=== PATIENT | male | born 1955 | race Caucasian/White ===

== ENCOUNTER 2017-03-19 14:48 | Inpatient (IN) | payer OTHER ==
[2017-03-19] VITALS (7 sets, daily range): BP systolic 123; BP diastolic 89; PULSE 87–105; TEMP 36.4; O2SAT 93–99; Ht 165.1 cm; Wt 51.9 kg
[~2017-03-19] VITALS: Ht 165.1 cm; Wt 51.9 kg
[2017-03-19] MEDS ORDERED: TIOT1SPR INH (15:18)
[2017-03-19] MEDS ORDERED: OXGN (15:18)
[2017-03-19] MEDS ORDERED: ALBU18002 INH (15:18)
[2017-03-19] MEDS ORDERED: ALBU1.257 NEB (15:18)
[2017-03-19] MEDS ORDERED: SYMIN/8045 INH (15:18)
[2017-03-19] MEDS ORDERED: CEFTRIAXONE SOD INJ 2,000 MG in DEXTROSE 5% 50ML 50 ML IV STA (15:21)
[2017-03-19] MEDS ORDERED: ALBUT/IPRATROP 3MG/0.5MG NEB 3 ML VIAL INH STA (15:21)
[2017-03-19] MEDS ORDERED: SODIUM CHLORIDE 0.9% 1000ML 1,000 ML IV STA (15:21)
--- NOTE | 2017-03-19 16:04 | EMERGENCY ROOM VISIT NOTE ---
History Report prepared by Jose Manuel: Dru Posada Under the Supervision of: Dr. Avery Ennis M.D. First contact with patient: 15:14 Chief Complaint: SHORTNESS OF BREATH Stated Complaint: SOB Nursing Triage Summary: Presented to ED via ambulance. Patient is a [place], [place] resident, arrived to [place] at 1130am, staying with daughter during [place]. Patient developed worsening shortness of breath shortly after arrival. Cough more productive today (yellow/green sputum). EMS - administered 125mg solumedrol, albuterol x2 and duoneb x1 nebulizer en route. Very short of breath, labored and anxious upon arrival to ED. changed to oxymask 6L, much improved. PMHx "end stage emphysema", current daily smoker. Wears 2-3L NC at all times. No cpap at night. DNR/DNI order in [place], did not bring copy History of Present Illness The patient is a 61 year old male who presents to the Emergency Room with complaints of worsening shortness of breath beginning yesterday. The patient states that he just arrived from [place], and he was in the car for 24 hours. He reports that in the car, he had an O2 concentrator and tank running constantly. The patient notes that he did not get out the car very often. The patient reports that they arrived 4 hours ago, and when he got out of the car and stood up, his symptoms worsened. He notes he used his albuterol twice at home, and he received a duoneb, albuterol treatment, and injection of Solu- Medrol in the ambulance. The patient states that this morning he experienced diaphoresis, but he denies a fever. He notes he also has had a productive yellow cough for a while now. The patient reports that he gets chest pain, puts a heating pad on his chest, and it goes away within 5 minutes. The patient states that he is currently being treated for stage IV emphysema. He reports that he does not have C-PAP or Bi-PAP at home. The patient notes that he was on Bi-PAP a year ago, and he was able to breath better. Source of History: patient Onset: yesterday Position: chest Quality: other (SOB) Timing: worsening Modifying Factors (Worsening): other (showering) Associated Symptoms: + diaphoresis, + cough, + chest pain, No fevers Review of Systems See HPI for pertinent positives & negatives. A total of 10 systems reviewed and were otherwise negative. Past Medical & Surgical Medical Problems: (1) Emphysema of lung Family History Patient reports no known family medical history. Social History Smoking Status: Current Every Day Smoker Marital Status: Housing Status: lives with significant other Current/Historical Medications Scheduled Albuterol Sulfate (Albuterol Sulfate), 1 VIAL NEB TID Budesonide/Formoterol Fumarate (Symbicort 80/4.5 Inhaler), 2 PUFFS INH BID Home O2 Therapy (Oxygen), 2-3 LITERS NA CONTINOUS Tiotropium [place] (Spiriva Respimat), 1 PUFF INH DAILY Scheduled PRN Albuterol Sulfate (Proair Respiclick), 2 PUFFS INH UD PRN for Rescue Allergies Coded Allergies: No Known Allergies (Unverified , 03/19/17) Physical Exam Vital Signs Date Time Temp Pulse Resp B/P (MAP) Pulse Ox O2 Delivery O2 Flow Rate FiO2 03/19/17 17:41 100 20 98 BiPAP 60 03/19/17 17:02 107 22 126/86 100 BiPAP 60 03/19/17 16:48 105 16 99 BiPAP/CPAP 60 03/19/17 16:45 105 99 60 03/19/17 15:40 100 BiPAP 100 03/19/17 15:40 99 BiPAP 100 03/19/17 15:38 103 26 99 BiPAP 100 03/19/17 15:02 119 03/19/17 14:59 97 Oxymask 6.0 03/19/17 14:59 36.6 110 28 127/97 98 Oxymask 6.0 98 Physical Exam GENERAL: Patient is in no acute distress. Mild respiratory difficulty with speaking. HEENT: No acute trauma, normocephalic atraumatic, mucous membranes moist, no nasal congestion, no scleral icterus. NECK: No stridor, no adenopathy, no meningismus, trachea is midline. LUNGS: Decreased breath sounds bilaterally with minimal air movement. No wheezing or rhonchi. Increased respiratory rate. HEART: Very distant heart tones secondary to lung sounds, rate seems normal, possibly tachycardic. ABDOMEN: Soft, nontender, bowel sounds positive, no hernias, no peritonitis. EXTREMITIES: No cyanosis or edema, full range of motion of all the joints without pain or difficulty, no signs for acute trauma. NEUROLOGIC: Oriented x 3, no acute motor or sensory deficits, no focal weakness. SKIN: No rash, no jaundice, no diaphoresis. Medical Decision & Procedures ER Provider Diagnostic Interpretation: X-ray results as stated below per interpretation by me and the radiologist: CHEST ONE VIEW PORTABLE CLINICAL HISTORY: Respiratory distress. Dyspnea. COMPARISON STUDY: No previous studies for comparison. FINDINGS: Severe emphysema is noted. The patient is rotated. Asymmetric left lung airspace opacity is noted, most evident within the left lung base. Several nodular densities projecting over the left upper lung could reflect summation artifact with ribs. Cardiac size is normal. There is no evidence for pulmonary edema. IMPRESSION: 1. Mild asymmetric left lung airspace opacity which favors an infectious process. Radiographic follow up to ensure resolution is recommended. 2. A few nodular densities projecting over the left upper lung. This could reflect summation artifact, airspace disease or less likely pulmonary nodules. This should be assessed on subsequent studies. 3. Severe emphysema. Electronically signed by: Winston Orellana M.D. 03/19/2017 4:01 PM Dictated Date/Time: 03/19/2017 3:55 PM Laboratory Results 03/19/17 15:55 Red Blood Count 5.17, Mean Corpuscular Volume 94.4, Mean Corpuscular Hemoglobin 33.8, Mean Corpuscular Hemoglobin Concent 35.9, Mean Platelet Volume 11.0, Neutrophils (%) (Auto) 82.0, Lymphocytes (%) (Auto) 10.3, Monocytes (%) (Auto) 7.1, Eosinophils (%) (Auto) 0.1, Basophils (%) (Auto) 0.2, Neutrophils # (Auto) 10.46, Lymphocytes # (Auto) 1.32, Monocytes # (Auto) 0.91, Eosinophils # (Auto) 0.01, Basophils # (Auto) 0.03 03/19/17 15:55 Test 03/19/17 15:55 03/19/17 17:11 White Blood Count 12.77 K/uL (4.8-10.8) Red Blood Count 5.17 M/uL (4.7-6.1) Hemoglobin 17.5 g/dL (14.0-18.0) Hematocrit 48.8 % (42-52) Mean Corpuscular Volume 94.4 fL (80-100) Mean Corpuscular Hemoglobin 33.8 pg (25-34) Mean Corpuscular Hemoglobin Concent 35.9 g/dl (32-36) Platelet Count 213 K/uL (130-400) Mean Platelet Volume 11.0 fL (7.4-10.4) Neutrophils (%) (Auto) 82.0 % Lymphocytes (%) (Auto) 10.3 % Monocytes (%) (Auto) 7.1 % Eosinophils (%) (Auto) 0.1 % Basophils (%) (Auto) 0.2 % Neutrophils # (Auto) 10.46 K/uL (1.4-6.5) Lymphocytes # (Auto) 1.32 K/uL (1.2-3.4) Monocytes # (Auto) 0.91 K/uL (0.11-0.59) Eosinophils # (Auto) 0.01 K/uL (0-0.5) Basophils # (Auto) 0.03 K/uL (0-0.2) RDW Standard Deviation 46.5 fL (36.4-46.3) RDW Coefficient of Variation 13.4 % (11.5-14.5) Immature Granulocyte % (Auto) 0.3 % Immature Granulocyte # (Auto) 0.04 K/uL (0.00-0.02) Prothrombin Time 10.7 SECONDS (9.0-12.0) Prothromb Time International Ratio 1.0 (0.9-1.1) Activated Partial Thromboplast Time 28.2 SECONDS (21.0-31.0) Partial Thromboplastin Ratio 1.1 Anion Gap 10.0 mmol/L (3-11) Est Creatinine Clear Calc Drug Dose 59.6 ml/min Estimated GFR () 97.4 Estimated GFR (Non- 84.1 BUN/Creatinine Ratio 12.7 (10-20) Calcium Level 9.8 mg/dl (8.5-10.1) Total Bilirubin 0.8 mg/dl (0.2-1) Alanine Aminotransferase (ALT/SGPT) 15 U/L (12-78) Alkaline Phosphatase 71 U/L (45-117) Troponin I < 0.015 ng/ml (0-0.045) Total Protein 8.2 gm/dl (6.4-8.2) Albumin 4.1 gm/dl (3.4-5.0) Globulin 4.1 gm/dl (2.5-4.0) Albumin/Globulin Ratio 1.0 (0.9-2) Lactic Acid Level 2.7 mmol/L (0.4-2.0) Laboratory results reviewed by me. Medications Administered Medications (Trade) Dose Ordered Sig/Estuardo Route Start Time Stop Time Status Last Admin Dose Admin Sodium Chloride 1,000 ml @ 200 mls/hr Q5H STAT IV 03/19/17 15:21 03/19/17 20:05 DC 03/19/17 16:20 200 MLS/HR Albuterol/ Ipratropium (Duoneb) 12 ml NOW STAT INH 03/19/17 15:21 03/19/17 15:25 DC 03/19/17 15:49 12 ML Ceftriaxone Sodium 2000 mg/ Dextrose 70 ml @ 100 mls/hr ONE STAT IV 03/19/17 15:21 03/19/17 16:02 DC 03/19/17 16:20 100 MLS/HR Levofloxacin (Levaquin / D5W) 750 mg NOW STAT IV 03/19/17 16:47 03/19/17 16:48 DC 03/19/17 17:38 750 MG ECG Indication: SOB/dyspnea Rate (beats per minute): 130 Rhythm: sinus tachycardia Findings: no acute ischemic change, no ectopy, other (old septal infarct) ED Course 1514: The patient was evaluated in room B04B. A complete history and physical exam was performed. 1521: Ordered Ceftriaxone Sodium 2000mg/Dextrose 70ml @ 100mls/hr, Duoneb 12ml INH, Sodium Chloride 1000 ml @ 200 mls/hr IV 1647: Ordered Levofloxacin 750mg IV 1730: I discussed the patient's case with Dr. Everett, [facility] Hospitalist. The patient will be evaluated for further treatment. 1734: Upon reexamination the patient is resting. I discussed results and treatment plan with the patient. He verbalizes agreement and understanding. The patient will be evaluated for further management. Medical Decision The patient is a 61 year old male who presents to the ED with complaints of shortness of breath. Differential diagnoses considered include exacerbation of COPD, bronchitis or pneumonia, CHF, cardiac ischemia, PE, anemia, electrolyte imbalance. There is a mild leukocytosis, this could be consistent with infection or with the stress of his situation. No worrisome anemia. No significant electrolyte abnormality, kidney failure or hepatitis. There is no coagulopathy. Lactic acid level is mildly elevated, consistent with possible infection or dehydration. EKG shows a sinus tachycardia, there was no evidence for acute ischemic change. Cardiac enzyme testing times one is not consistent with acute cardiac injury. Chest film shows a patchy pneumonia on the left. No pneumothorax or CHF. Blood cultures are pending. The patient presented quite short of breath. He had already received multiple nebulizer treatments prior to arrival, he had received IV Solu-Medrol prior to arrival. The patient was put on BiPAP with a 1 hour DuoNeb. He was given IV ceftriaxone and IV Levaquin as antibiotic coverage. He received IV saline. The patient appears to have pneumonia with an exacerbation of COPD. He was in respiratory distress prior to arrival but is improved since his treatment in the ER. He does require a hospital stay. I spoke to the patient and the rehabilitation case coordinator. The on-call hospitalist was consulted. Medication Reconcilliation Current Medication List: was personally reviewed by me Blood Pressure Screening Patient's blood pressure: Normal blood pressure Blood pressure disposition: Did not require urgent referral Consults Time Called: 1728 Consulting Physician: China Tamayo Hospitalist Returned Call: 1730 I discussed the patient's case with China Tamayo. The patient will be evaluated for further treatment. Impression Primary Impression: Respiratory distress Additional Impressions: PNA (pneumonia) COPD exacerbation Critical Care I have personally spent greater than 30 minutes of critical care time in the direct management of this patient. This includes bedside care, interpretation of diagnostic studies and testing, discussion with consultants, the patient, and family members, and other required patient management activities. This 30 minutes is in excess of all separately billable procedures. Scribe Attestation The scribe's documentation has been prepared under my direction and personally reviewed by me in its entirety. I confirm that the note above accurately reflects all work, treatment, procedures, and medical decision making performed by me. Departure Information Dispostion Being Evaluated By Hospitalist Referrals Boris Hill M.D. (PCP) Patient Instructions [facility] Problem Qualifiers
[2017-03-19 16:22] LABS: BASO % 0.2 %; BASO ABS # 0.03 K/uL (0-0.2); COMPLETE YES; EOS % 0.1 %; HEMATOCRIT 48.8 % (42-52); IG% 0.3 %; LYMPH % 10.3 %; LYMPH ABS # 1.32 K/uL (1.2-3.4); MEAN CELL VOLUME 94.4 fL (80-100); MEAN CORPUSCULAR HEMOGLOBIN 33.8 pg (25-34); MEAN CORPUSCULAR HGB CONC 35.9 g/dl (32-36); MONO % 7.1 %; PLATELET COUNT 213 K/uL (130-400); RED BLOOD COUNT 5.17 M/uL (4.7-6.1); WHITE BLOOD COUNT 12.77 K/uL (4.8-10.8)
[2017-03-19 16:31] LABS: PARTIAL THROMBOPLASTIN RATIO 1.1; PROTHROMBIN TIME (PATIENT) 10.7 SECONDS (9.0-12.0)
[2017-03-19] MEDS ORDERED: LEVAQUIN 750MG / 150ML D5W IV STA (16:47)
[2017-03-19 17:14] LABS: ALKALINE PHOSPHATASE 71 U/L (45-117); ALT/SGPT 15 U/L (12-78); BLOOD UREA NITROGEN 12 mg/dl (7-18); BUN/CREATININE RATIO 12.7 (10-20); CALCIUM 9.8 mg/dl (8.5-10.1); CARBON DIOXIDE 26 mmol/L (21-32); CHLORIDE 102 mmol/L (98-107); CREATININE 0.98 mg/dl (0.60-1.40); GLUCOSE 105 mg/dl (70-99); SODIUM 138 mmol/L (136-145)
[2017-03-19] MEDS ORDERED: MAGNESIUM SULFATE 1GM / D5W 1 GM in PREMIXED IN D5W 100 ML IV STA (18:27)
[2017-03-19] MEDS ORDERED: ONDANSETRON INJ 2 MG/ML 2 ML VIAL IV PRN (18:30)
--- NOTE | 2017-03-19 18:52 | History and Physical ---
History & Physical Date & Time of Service: Mar 19, 2017 at 18:29 Chief Complaint: SOB Primary Care Physician: No Doctor, Assigned History of Present Illness Source: patient, family This is a 61 year old male with a PMH of severe COPD and chronic respiratory failure and ongoing tobacco use presents with worsening shortness of breath. He is a resident of [place] and came to [place] to get away from [place]. He came over and stated that he was driving and felt really short of breath. Denied any chest pain. States he used nebulizer treatments x2 prior to arrival; he also received a third neb treatment en route. Upon presentation, had imagining done with suggested a pneumonia. Was given antibiotics, solu- medrol, neb treatments and was put on bipap. During my examination, he was more comfortable than when he first came in. Past Medical/Surgical History Medical Problems: (1) Emphysema of lung Status: Chronic Family History Patient reports no known family medical history. Social History Smoking Status: Current Every Day Smoker Marital Status: Multi-Drug Resistant Organisms History of MDRO: No Allergies Coded Allergies: No Known Allergies (Unverified , 03/19/17) Home Medications Scheduled Albuterol Sulfate (Albuterol Sulfate), 1 VIAL NEB TID Budesonide/Formoterol Fumarate (Symbicort 80/4.5 Inhaler), 2 PUFFS INH BID Home O2 Therapy (Oxygen), 2-3 LITERS NA CONTINOUS Tiotropium [place] (Spiriva Respimat), 1 PUFF INH DAILY Scheduled PRN Albuterol Sulfate (Proair Respiclick), 2 PUFFS INH UD PRN for Rescue Review of Systems Constitutional: No fever, No chills, No sweats, No weakness, No fatigue Respiratory: + shortness of breath, + dyspnea on exertion, + dyspnea at rest, No cough, No sputum, No wheezing, No hemoptysis Cardiovascular: No chest pain, No orthopnea, No edema, No palpitations Abdomen: No pain, No nausea, No vomiting, No diarrhea, No constipation, No GI bleeding Genitourinary - Male: No hematuria, No dysuria Neurologic: No numbness/tingling Psychiatric: No depression symptoms, No anxiety, No insomnia Endocrine: No fatigue Hematologic / Lymphatic: No abnormal bleeding/bruising Integumentary: No rash Allergic / Immunologic: No environmental allergies, No seasonal allergies Physical Exam Vital Signs Date Time Temp Pulse Resp B/P (MAP) Pulse Ox O2 Delivery O2 Flow Rate FiO2 03/19/17 17:41 100 20 98 BiPAP 60 03/19/17 17:02 107 22 126/86 100 BiPAP 60 03/19/17 16:48 105 16 99 BiPAP/CPAP 60 03/19/17 16:45 105 99 60 03/19/17 15:40 100 BiPAP 100 03/19/17 15:40 99 BiPAP 100 03/19/17 15:38 103 26 99 BiPAP 100 03/19/17 15:02 119 03/19/17 14:59 97 Oxymask 6.0 03/19/17 14:59 36.6 110 28 127/97 98 Oxymask 6.0 98 General Appearance: + mild distress (respiratory distress), + thin Respiratory/Chest: + respiratory distress, + decreased breath sounds, + pertinent finding (no wheezing appreciated, decreased breath sounds) Cardiovascular: no edema, no murmur, + tachycardia Abdomen/GI: normal bowel sounds, non tender, soft Extremities/Musculoskelatal: no calf tenderness, normal capillary refill, no pedal edema Neurologic/Psych: 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 as tested, no motor/sensory deficits, alert, normal mood/affect, oriented x 3 Skin: normal color Lymphatic: no adenopathy Diagnostics Laboratory Results Results Past 24 Hours Test 03/19/17 15:55 03/19/17 17:11 03/19/17 17:14 Range/Units White Blood Count 12.77 4.8-10.8 K/uL Red Blood Count 5.17 4.7-6.1 M/uL Hemoglobin 17.5 14.0-18.0 g/dL Hematocrit 48.8 42-52 % Mean Corpuscular Volume 94.4 80-100 fL Mean Corpuscular Hemoglobin 33.8 25-34 pg Mean Corpuscular Hemoglobin Concent 35.9 32-36 g/dl Platelet Count 213 130-400 K/uL Mean Platelet Volume 11.0 7.4-10.4 fL Neutrophils (%) (Auto) 82.0 % Lymphocytes (%) (Auto) 10.3 % Monocytes (%) (Auto) 7.1 % Eosinophils (%) (Auto) 0.1 % Basophils (%) (Auto) 0.2 % Neutrophils # (Auto) 10.46 1.4-6.5 K/uL Lymphocytes # (Auto) 1.32 1.2-3.4 K/uL Monocytes # (Auto) 0.91 0.11-0.59 K/uL Eosinophils # (Auto) 0.01 0-0.5 K/uL Basophils # (Auto) 0.03 0-0.2 K/uL RDW Standard Deviation 46.5 36.4-46.3 fL RDW Coefficient of Variation 13.4 11.5-14.5 % Immature Granulocyte % (Auto) 0.3 % Immature Granulocyte # (Auto) 0.04 0.00-0.02 K/uL Prothrombin Time 10.7 9.0-12.0 SECONDS Prothromb Time International Ratio 1.0 0.9-1.1 Activated Partial Thromboplast Time 28.2 21.0-31.0 SECONDS Partial Thromboplastin Ratio 1.1 Sodium Level 138 136-145 mmol/L Potassium Level 3.5-5.1 mmol/L Chloride Level 102 98-107 mmol/L Carbon Dioxide Level 26 21-32 mmol/L Anion Gap 10.0 3-11 mmol/L Blood Urea Nitrogen 12 7-18 mg/dl Creatinine 0.98 0.60-1.40 mg/dl Est Creatinine Clear Calc Drug Dose 59.6 ml/min Estimated GFR () 97.4 Estimated GFR (Non- 84.1 BUN/Creatinine Ratio 12.7 10-20 Random Glucose 105 70-99 mg/dl Calcium Level 9.8 8.5-10.1 mg/dl Total Bilirubin 0.8 0.2-1 mg/dl Aspartate Amino Transf (AST/SGOT) 15-37 U/L Alanine Aminotransferase (ALT/SGPT) 15 12-78 U/L Alkaline Phosphatase 71 45-117 U/L Troponin I < 0.015 0-0.045 ng/ml Total Protein 8.2 6.4-8.2 gm/dl Albumin 4.1 3.4-5.0 gm/dl Globulin 4.1 2.5-4.0 gm/dl Albumin/Globulin Ratio 1.0 0.9-2 Lactic Acid Level 2.7 0.4-2.0 mmol/L Microbiology Results 03/19/17 Blood Culture, Received Pending 03/19/17 Blood Culture, Received Pending Diagnostic Radiology CHEST ONE VIEW PORTABLE CLINICAL HISTORY: Respiratory distress. Dyspnea. COMPARISON STUDY: No previous studies for comparison. FINDINGS: Severe emphysema is noted. The patient is rotated. Asymmetric left lung airspace opacity is noted, most evident within the left lung base. Several nodular densities projecting over the left upper lung could reflect summation artifact with ribs. Cardiac size is normal. There is no evidence for pulmonary edema. IMPRESSION: 1. Mild asymmetric left lung airspace opacity which favors an infectious process. Radiographic follow up to ensure resolution is recommended. 2. A few nodular densities projecting over the left upper lung. This could reflect summation artifact, airspace disease or less likely pulmonary nodules. This should be assessed on subsequent studies. 3. Severe emphysema. EKG Sinus tachycardia Right atrial enlargement Right axis deviation Low voltage QRS Cannot rule out Anteroseptal infarct , age undetermined Impression Assessment and Plan This is a 61 year old male with a PMH of severe COPD and chronic respiratory failure and ongoing tobacco use presents with worsening shortness of breath. Acute COPD Exacerbation Acute on Chronic Respiratory Failure patient has severe emphysema and chronically on 2L of O2 currently on bipap, which we will continue for now can wean back to nasal cannula if he tolerates it and if O2 sats stay around 92 % or higher Xopenox nebulizers added Solu-medrol 40mg q8 added Daliresp Magnesium 1gram Spiriva and Symbicort pulmonary consultation for further input Community Acquired Pneumonia certainly making the COPD worse will start Rocephin + Azithromycin WBC elevated, cultures pending repeat CXR in 1-2 days Lactic Acidosis this is more likely related to his hypoxia, does not seem dehydrated, will likely improve with improved oxygenation DVT ppx subq heparin FULL CODE VTE Prophylaxis VTE Risk Assessment Done? Y/N: Yes Risk Level: Moderate
[2017-03-19] MEDS ORDERED: MAGNESIUM SULFATE 1GM / D5W 1 GM BAG ONE (19:08)
[2017-03-19] MEDS ORDERED: BUDESONIDE/FORMOTEROL FUMARATE 80/4.5 60 PUFFS/INHALER INH SCH (20:00)
[2017-03-19] MEDS ORDERED: NICOTINE 14 MG/24 HR TDSY TD ONE (20:26)
[2017-03-19 20:53] LABS: POTASSIUM 3.9 mmol/L (3.5-5.1)
[2017-03-19] MEDS: LEVALBUTEROL 0.63MG/3 ML NEB INH SCH (21:00)
[2017-03-19] MEDS: METHYLPREDNISOLONE IV 40 MG in SYRINGE 0 ML IV SCH (21:57)
[2017-03-19] MEDS: HEPARIN SOD 5000 UNIT/0.5 ML CARP SQ SCH (22:00)
[2017-03-20] VITALS (11 sets, daily range): BP systolic 112–128; BP diastolic 76–88; PULSE 74–103; TEMP 36.2–36.5; O2SAT 94–99
[2017-03-20] MEDS: LEVALBUTEROL 0.63MG/3 ML NEB INH SCH ×4 (02:08→19:04)
[2017-03-20] MEDS: METHYLPREDNISOLONE IV 40 MG in SYRINGE 0 ML IV SCH ×3 (05:34→21:20)
[2017-03-20] MEDS: HEPARIN SOD 5000 UNIT/0.5 ML CARP SQ SCH ×3 (05:36→21:24)
[2017-03-20 05:56] LABS: HEMATOCRIT 47.1 % (42-52); MEAN CELL VOLUME 95.2 fL (80-100); MEAN CORPUSCULAR HEMOGLOBIN 32.1 pg (25-34); MEAN CORPUSCULAR HGB CONC 33.8 g/dl (32-36); MEAN PLATELET VOLUME 10.8 fL (7.4-10.4); PLATELET COUNT 248 K/uL (130-400); RED BLOOD COUNT 4.95 M/uL (4.7-6.1); WHITE BLOOD COUNT 8.59 K/uL (4.8-10.8)
[2017-03-20 06:24] LABS: BUN/CREATININE RATIO 12.6 (10-20); CALCIUM 9.5 mg/dl (8.5-10.1)
[2017-03-20] MEDS ORDERED: NICOTINE 14 MG/24 HR TDSY TD SCH (08:00)
[2017-03-20] MEDS: ROFLUMILAST 500 MCG TAB PO SCH (08:42)
[2017-03-20] MEDS: AZITHROMYCIN 250 MG TAB PO SCH (08:42)
[2017-03-20] MEDS: BUDESONIDE/FORMOTEROL FUMARATE 160/4.5 60 PUFFS/INHALER INH SCH ×2 (08:42→19:04)
[2017-03-20] MEDS: ACETAMINOPHEN 325 MG TAB PO PRN (08:49)
[2017-03-20] MEDS ORDERED: LORAZEPAM 2 MG/ML 1 ML VIAL IV STA (09:03)
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
[2017-03-20] MEDS ORDERED: OPTIRAY 320 IV PRN (12:15)
--- NOTE | 2017-03-20 12:46 | DIAGNOSTIC IMAGING REPORT ---
(CHEST FOR PE) ANGIO WITH CT DOSE: 232.36 mGy.cm HISTORY: Chest pain. Dyspnea. Rule out pulmonary embolism, evaluate LUB nodules TECHNIQUE: Multiaxial CT images of the chest were performed following the intravenous administration of contrast to evaluate the pulmonary arteries. Maximal intensity projection images were also obtained. A dose lowering technique was utilized adhering to the principles of ALARA. COMPARISON STUDY: Chest series dated 03/19/2017 FINDINGS: Mild left ischemic change thoracic aorta emphysematous change throughout both hemithoraces. Pulmonary vasculature enhances appropriately. There are no significant filling defects. Interstitial changes involving the lingula. This potentially relates to chronic fibrotic change. Centrally calcified nodule left midlung region felt to represent a calcified granuloma. There are no significant noncalcified nodular changes. Potential nodularity over the pulmonary apices appear to relate to fibrotic scarring. IMPRESSION: 1. Study is negative for pulmonary embolus. 2. Considerable emphysematous and to lesser extent interstitial change. 3. No significant pulmonary nodularity. 4. Instill note is made of several gallstones in the region of the gallbladder neck. The above report was generated using voice recognition software. It may contain grammatical, syntax or spelling errors. Electronically signed by: Audie Pleayo M.D. 03/20/2017 12:45 PM Dictated Date/Time: 03/20/2017 12:42 PM
[2017-03-20] MEDS: LORAZEPAM 0.5 MG TAB PO PRN (14:30)
[2017-03-20] MEDS ORDERED: CEFTRIAXONE SOD INJ 1 GM in DEXTROSE 5% ADD-VANTAGE 50ML 50 ML IV SCH (16:00)
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
[2017-03-20] MEDS: NICOTINE 14 MG/24 HR TDSY TD SCH (21:20)
[2017-03-20] MEDS ORDERED: GUAIFENESIN 200 MG TAB PO PRN (23:00)
[2017-03-20] MEDS: LEVALBUTEROL 1.25MG/0.5ML NEB INH PRN (23:13)
[2017-03-21] VITALS (8 sets, daily range): BP systolic 119–134; BP diastolic 69–86; PULSE 70–102; TEMP 36.4–36.5; O2SAT 93–96
[2017-03-21] MEDS: LEVALBUTEROL 0.63MG/3 ML NEB INH SCH ×4 (02:09→19:04)
[2017-03-21] MEDS: LORAZEPAM 0.5 MG TAB PO PRN ×2 (04:11→18:55)
[2017-03-21] MEDS: METHYLPREDNISOLONE IV 40 MG in SYRINGE 0 ML IV SCH (05:51)
[2017-03-21] MEDS: HEPARIN SOD 5000 UNIT/0.5 ML CARP SQ SCH ×3 (05:52→20:42)
[2017-03-21] MEDS: TIOTROPIUM BROMIDE 5 PUFF/90 MCG INH INH SCH (07:29)
[2017-03-21] MEDS: BUDESONIDE/FORMOTEROL FUMARATE 160/4.5 60 PUFFS/INHALER INH SCH ×2 (07:33→20:00)
[2017-03-21] MEDS: ROFLUMILAST 500 MCG TAB PO SCH (07:34)
[2017-03-21] MEDS: AZITHROMYCIN 250 MG TAB PO SCH (07:34)
[2017-03-21] MEDS: ACETAMINOPHEN 325 MG TAB PO PRN (18:52)
[2017-03-21] MEDS ORDERED: BUDESONIDE/FORMOTEROL FUMARATE 80/4.5 60 PUFFS/INHALER INH SCH (20:00)
[2017-03-21] MEDS: NICOTINE 14 MG/24 HR TDSY TD SCH (20:41)
[2017-03-22] VITALS (7 sets, daily range): BP systolic 104–113; BP diastolic 69–71; PULSE 76–96; TEMP 36.5–36.6; O2SAT 94–98
[2017-03-22] MEDS: LEVALBUTEROL 0.63MG/3 ML NEB INH SCH ×2 (01:50→07:07)
[2017-03-22] MEDS: HEPARIN SOD 5000 UNIT/0.5 ML CARP SQ SCH ×3 (06:00→19:48)
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
[2017-03-22] MEDS: ROFLUMILAST 500 MCG TAB PO SCH (07:48)
[2017-03-22] MEDS: TIOTROPIUM BROMIDE 5 PUFF/90 MCG INH INH SCH (07:48)
[2017-03-22] MEDS: AZITHROMYCIN 250 MG TAB PO SCH (07:48)
[2017-03-22] MEDS: BUDESONIDE/FORMOTEROL FUMARATE 160/4.5 60 PUFFS/INHALER INH SCH ×2 (07:49→19:47)
[2017-03-22] MEDS ORDERED: NURSING VERBAL MED ORDER ONE (13:30)
--- NOTE | 2017-03-22 13:49 | Progress Note ---
Medicine Progress Note Date & Time of Visit: Mar 22, 2017 at 13:43. Subjective tolerating PO denies excessive coughing, fevers or chills feels not quite back to baseline from an ambulation standpoint. encouraged him to ambulate with assistance Objective Last 8 Hrs Date Time Temp Pulse Resp B/P (MAP) Pulse Ox O2 Delivery O2 Flow Rate FiO2 03/22/17 09:24 80 94 03/22/17 08:30 95 Nasal Cannula 3.0 03/22/17 07:10 36.5 76 22 104/71 (82) 95 Nasal Cannula 3.0 03/22/17 07:07 79 18 94 Nasal Cannula 3.0 Physical Exam: GEN: thin, in no acute distress, alert and appropriate, supplemental oxygen in place. HEENT: NC/AT, normal sclerae, MMM CARDIO: reg rate, S1/2 heard without m/g/r LUNGS: lungs are clear to auscultation without wheezing rales or rhonchi. ABD: soft, non-tender, non-distended, no rebound or guarding, +BS EXTREMITY: RP and DP palpable 2+ bilat, no LE swelling or edema, extremities are warm and well-perfused N/M: no gross focal deficits. SKIN: warm and dry Assessment & Plan This is a 61 year old male with a PMH of severe COPD and chronic respiratory failure and ongoing tobacco use presents with worsening shortness of breath. 1. Acute on chronic hypoxemic respiratory failure 2/2 COPD exacerbation. Clinical improvement overnight and although pt is back to breathing baseline, he doesn't feel strong enough to leave yet. PT/OT have been ordered to assess him. Active smoker, CT chest for PE was negative in setting of recent long car- ride. No evidence for pneumonia on CT scan. On BIPAP overnight with some improvement and this is not something that he uses at home. Currently on nasal canula at his baseline. Blood cultures are negative to date. Cont prednisone and azithromycin. Change duonebs to PRN. cont Symbicort and Spiriva per pulmonary team. Daliresp was also started on admission. 2. Tobacco use-Nicotine patch in place. Encouraged to quit smoking. Nicotine patch in place. 3. Situational Anxiety-Ativan PRN, new drug for him. DVT ppx subq heparin FULL CODE Dispo-uncertain at this time. Likely to home when medically stable; awaiting PT /OT recs. Of note, this patient drove here from [place] where he lives and has a PCP. His lives up here. Discussed with Roseline about getting him a hospital follow-[facility]. DO [place] [employer] [facility] Consultants: Kris Current Inpatient Medications: Current Inpatient Medications Medications (Trade) Dose Ordered Sig/Estuardo Route Start Time Stop Time Status Last Admin Dose Admin Heparin Sodium (Porcine) (Heparin Sq 5000 Unit/0.5ml) 5,000 unit Q8 SQ 03/19/17 22:00 04/18/17 21:59 Acetaminophen (Tylenol Tab) 650 mg Q4H PRN PO 03/19/17 18:30 04/18/17 18:29 03/21/17 18:52 650 MG Ondansetron HCl (Zofran Inj) 4 mg Q6H PRN IV 03/19/17 18:30 04/18/17 18:29 Azithromycin (Zithromax Tab) 250 mg QAM PO 03/20/17 08:00 03/27/17 08:59 03/22/17 07:48 250 MG Levalbuterol (Xopenex 0.63 Mg/ 3 Ml Neb) 0.63 mg Q6R INH 03/19/17 21:00 04/18/17 20:59 03/22/17 07:07 0.63 MG Miscellaneous Information (Order Awaiting Action) 1 ea QS N/A 03/20/17 00:00 04/19/17 00:00 Roflumilast (Daliresp Tab) 500 mcg DAILY PO 03/20/17 08:00 04/19/17 08:59 03/22/17 07:48 500 MCG Levalbuterol (Xopenex 1.25MG/ 0.5ML Neb) 1.25 mg Q4H PRN INH 03/20/17 06:30 04/19/17 06:29 03/20/17 23:13 1.25 MG Lorazepam (Ativan Tab) 0.5 mg TID PRN PO 03/20/17 09:15 04/19/17 09:14 03/21/17 18:55 0.5 MG Tiotropium Valdez (Spiriva Handihaler Inhaler) 1 puff QAM INH 03/21/17 08:00 04/20/17 07:59 03/22/17 07:48 1 PUFF Ioversol (Optiray 320) 111 ml UD PRN IV 03/20/17 12:15 03/24/17 12:14 Guaifenesin (Organidin Nr Tab) 200 mg Q4H PRN PO 03/20/17 23:00 04/19/17 22:59 Prednisone (PredniSONE TAB) 40 mg DAILY PO 03/22/17 08:00 04/21/17 07:59 03/22/17 07:47 40 MG Budesonide/ Formoterol Fumarate (Symbicort 160/ 4.5 Inh) 2 puffs BID INH 03/22/17 08:00 04/19/17 07:59 03/22/17 07:49 2 PUFFS Nicotine (Nicoderm Cq 14MG Patch) 1 patch QAM TD 03/23/17 08:00 04/22/17 07:59 Miscellaneous (Remove Nicoderm Patch) 1 ea HS N/A 03/22/17 21:00 04/21/17 20:59
[2017-03-22] MEDS: LEVALBUTEROL 1.25MG/0.5ML NEB INH PRN ×2 (13:58→21:02)
[2017-03-22] MEDS: NICOTINE 14 MG/24 HR TDSY TD SCH (17:36)
--- NOTE | 2017-03-22 17:46 | Pulmonology Progress Note ---
Pulmonary Progress Note Date of Service Mar 22, 2017. Attending Subjective Patient seen and examined at bedside. He states he's feeling better. He still is having productive sputum. Describes it as yellowish to brownish in color. He feels less dyspneic at rest. He would like to ambulate. Objective Vital signs reviewed. Temperature 36.6, blood pressure 104/71-113/69, pulse 76- 96, respiratory rate 18-22, SaO2 94-98 on 2.5-4 L nasal cannula. Output 1715 mL. Balance to 65 mL positive. General: Awake alert oriented 3, no acute distress, no use of accessory muscles of respiration. CVS: S1, S2, regular rate and rhythm. Lungs/chest: Barrel chest noted, decreased breath sounds bilaterally Abdomen: Soft, nontender, nondistended, bowel sounds present Extremity: No cyanosis, no clubbing, no peripheral edema. No recent labs. Sputum culture 03/22/2017-contaminated Blood cultures 03/19/2017-no growth to date 2, SPUTUM (CYTOLOGIC ANALYSIS): 1. MANY BENIGN SQUAMOUS EPITHELIAL CELLS, SCATTERED ACUTE AND CHRONIC INFLAMMATORY CELLS, AND STRIPS OF MUCUS ARE ALL SEEN. 2. ALVEOLAR MACROPHAGES ARE NOT SEEN. 3. THIS SPUTUM IS INSUFFICIENT FOR DIAGNOSIS. 4. PLEASE SEE ABOVE DISCUSSION. From a respiratory standpoint he is on Symbicort 160/4.52 puffs twice a day, Spiriva 1 puff every morning, guaifenesin 200 mg every 4 hours when necessary, nicotine patch, azithromycin 250 mg, Xopenex nebulizer and Daliresp 500 g daily when necessary. Assessment & Plan Acute on chronic respiratory insufficiency COPD Pulmonary nodules 1. COPD stage IV on LTOT 2-[address] chest was done, negative for PE. Patient initially on BIPAP, no on 3L NC. Maintain SaO2 between 88-92%/. Clinically improved. No signs of respiratory distress. Continue BIPAP at night Continue with Prednisone taper, Spiriva, Symbicort, nebulizers. Continue with Daliresp. Continue with flutter valve and chest PT. 2. Pulmonary nodules: Per the patient he has been followed by his PCP physician and [place] for pulmonary nodule since 2013 that are unchanged per patient. F/u records from [place]. Patient appears to be back at baseline. Will sign off the case for now. Please contact me if you have any other questions or concerns. Data Medications: Current Inpatient Medications Medications (Trade) Dose Ordered Sig/Estuardo Route Start Time Stop Time Status Last Admin Dose Admin Heparin Sodium (Porcine) (Heparin Sq 5000 Unit/0.5ml) 5,000 unit Q8 SQ 03/19/17 22:00 04/18/17 21:59 Acetaminophen (Tylenol Tab) 650 mg Q4H PRN PO 03/19/17 18:30 04/18/17 18:29 03/21/17 18:52 650 MG Ondansetron HCl (Zofran Inj) 4 mg Q6H PRN IV 03/19/17 18:30 04/18/17 18:29 Azithromycin (Zithromax Tab) 250 mg QAM PO 03/20/17 08:00 03/27/17 08:59 03/22/17 07:48 250 MG Miscellaneous Information (Order Awaiting Action) 1 ea QS N/A 03/20/17 00:00 04/19/17 00:00 Roflumilast (Daliresp Tab) 500 mcg DAILY PO 03/20/17 08:00 04/19/17 08:59 03/22/17 07:48 500 MCG Levalbuterol (Xopenex 1.25MG/ 0.5ML Neb) 1.25 mg Q4H PRN INH 03/20/17 06:30 04/19/17 06:29 03/22/17 13:58 1.25 MG Lorazepam (Ativan Tab) 0.5 mg TID PRN PO 03/20/17 09:15 04/19/17 09:14 03/21/17 18:55 0.5 MG Tiotropium [place] (Spiriva Handihaler Inhaler) 1 puff QAM INH 03/21/17 08:00 04/20/17 07:59 03/22/17 07:48 1 PUFF Ioversol (Optiray 320) 111 ml UD PRN IV 03/20/17 12:15 03/24/17 12:14 Guaifenesin (Organidin Nr Tab) 200 mg Q4H PRN PO 03/20/17 23:00 04/19/17 22:59 Prednisone (PredniSONE TAB) 40 mg DAILY PO 03/22/17 08:00 04/21/17 07:59 03/22/17 07:47 40 MG Budesonide/ Formoterol Fumarate (Symbicort 160/ 4.5 Inh) 2 puffs BID INH 03/22/17 08:00 04/19/17 07:59 03/22/17 07:49 2 PUFFS Nicotine (Nicoderm Cq 14MG Patch) 1 patch QAM TD 03/23/17 08:00 04/22/17 07:59 Miscellaneous (Remove Nicoderm Patch) 1 ea HS N/A 03/22/17 21:00 04/21/17 20:59 I & O: 24-Hour Column 03/23/17 08:00 Intake Total 580 ml Output Total 225 ml Balance 355 ml Vital Signs: Date Time Temp Pulse Resp B/P (MAP) Pulse Ox O2 Delivery O2 Flow Rate FiO2 03/22/17 16:01 Nasal Cannula 3.0 03/22/17 14:52 36.6 96 20 113/69 (84) 98 Nasal Cannula 2.5 03/22/17 13:58 93 18 94 Nasal Cannula 3.0 03/22/17 09:24 80 94 03/22/17 08:30 95 Nasal Cannula 3.0 03/22/17 07:10 36.5 76 22 104/71 (82) 95 Nasal Cannula 3.0 03/22/17 07:07 79 18 94 Nasal Cannula 3.0 03/22/17 00:00 Nasal Cannula 4.0 03/21/17 22:49 36.5 70 18 134/69 (90) 96 Room Air 03/21/17 19:04 102 20 94 Nasal Cannula 4.0
[2017-03-22] MEDS: LORAZEPAM 0.5 MG TAB PO PRN (19:46)
[2017-03-22] MEDS: ACETAMINOPHEN 325 MG TAB PO PRN (19:46)
[2017-03-23] VITALS (9 sets, daily range): BP systolic 93–134; BP diastolic 63–77; PULSE 76–92; TEMP 36.3–36.6; O2SAT 92–97
[2017-03-23] MEDS: HEPARIN SOD 5000 UNIT/0.5 ML CARP SQ SCH ×3 (06:00→20:23)
[2017-03-23 06:32] LABS: MEAN CORPUSCULAR HEMOGLOBIN 31.2 pg (25-34); MEAN CORPUSCULAR HGB CONC 33.6 g/dl (32-36); MEAN PLATELET VOLUME 10.6 fL (7.4-10.4); PLATELET COUNT 214 K/uL (130-400); RED BLOOD COUNT 4.84 M/uL (4.7-6.1); WHITE BLOOD COUNT 9.97 K/uL (4.8-10.8)
[2017-03-23 07:02] LABS: CALCIUM 8.7 mg/dl (8.5-10.1); CREATININE 0.94 mg/dl (0.60-1.40); POTASSIUM 3.2 mmol/L (3.5-5.1)
[2017-03-23] MEDS: NICOTINE 14 MG/24 HR TDSY TD SCH (08:00)
[2017-03-23] MEDS: TIOTROPIUM BROMIDE 5 PUFF/90 MCG INH INH SCH (08:17)
[2017-03-23] MEDS: BUDESONIDE/FORMOTEROL FUMARATE 160/4.5 60 PUFFS/INHALER INH SCH ×2 (08:17→20:23)
[2017-03-23] MEDS: AZITHROMYCIN 250 MG TAB PO SCH (08:18)
[2017-03-23] MEDS: ROFLUMILAST 500 MCG TAB PO SCH (08:18)
[2017-03-23] MEDS: LEVALBUTEROL 1.25MG/0.5ML NEB INH PRN ×3 (09:47→21:35)
[2017-03-23] MEDS ORDERED: POTASSIUM CHLORIDE 10 MEQ TABCR PO ONE (11:00)
[2017-03-23] MEDS: LORAZEPAM 0.5 MG TAB PO PRN ×2 (14:21→20:21)
--- NOTE | 2017-03-23 17:17 | Progress Note ---
Internal Med Progress Note Date of Service: Mar 23, 2017. Provider Documentation: SUBJECTIVE: The patient was seen and examined Feels a little better Wants to move around before being discharged OBJECTIVE: Vital Signs-as noted below Exam: General-Minimal distress at rest Eyes-normal ENT-normal Neck-supple Lungs-decreased breath sound bilaterally Heart-Regular Abdomen-Benign,no masses,bowel sound Extremities-NO edema Neuro-AAOx3 Lab data as noted below. ASSESSMENT & PLAN: This is a 61 year old male with a PMH of severe COPD and chronic respiratory failure and ongoing tobacco use presents with worsening shortness of breath. Acute on chronic hypoxemic respiratory failure Due to COPD exacerbation. No evidence for pneumonia on CT scan He doesn't feel strong enough to leave yet. PT/OT have been ordered to assess him. CT chest for PE was negative in setting of recent long car-ride On BIPAP overnight with some improvement and this is not something that he uses at home Continue current Pulmonary Medications Active smoker Tobacco use-Nicotine patch in place. Encouraged to quit smoking. Nicotine patch in place. Situational Anxiety-Ativan PRN, new drug for him. DVT ppx subq heparin FULL CODE Vital Signs: Date Time Temp Pulse Resp B/P (MAP) Pulse Ox O2 Delivery O2 Flow Rate FiO2 03/24/17 07:14 36.4 70 18 114/80 (91) 95 Nasal Cannula 2.5 03/24/17 00:00 Nasal Cannula Humidified Oxygen 03/23/17 23:45 36.3 82 18 108/67 (81) 92 Nasal Cannula 2.5 Humidified Oxygen 03/23/17 21:37 79 97 30 03/23/17 21:36 76 20 97 BiPAP/CPAP 30 03/23/17 16:00 96 Nasal Cannula 3.0 03/23/17 15:35 84 20 97 Nasal Cannula 3.0 03/23/17 14:49 36.4 80 22 108/73 (85) 96 Nasal Cannula 2.5 03/23/17 09:48 83 20 96 Nasal Cannula 3.0 03/23/17 08:00 Nasal Cannula 2.5 Lab Results: Microbiology Results 03/24/17 Gram Stain, Received Pending 03/24/17 Sputum Culture, Received Pending
[2017-03-24] VITALS (8 sets, daily range): BP systolic 107–114; BP diastolic 73–80; PULSE 70–101; TEMP 36.4–36.8; O2SAT 95–98
[2017-03-24] MEDS: HEPARIN SOD 5000 UNIT/0.5 ML CARP SQ SCH ×3 (05:18→20:19)
[2017-03-24] MEDS: BUDESONIDE/FORMOTEROL FUMARATE 160/4.5 60 PUFFS/INHALER INH SCH ×2 (07:46→20:19)
[2017-03-24] MEDS: ROFLUMILAST 500 MCG TAB PO SCH (07:47)
[2017-03-24] MEDS: AZITHROMYCIN 250 MG TAB PO SCH (07:47)
[2017-03-24] MEDS: TIOTROPIUM BROMIDE 5 PUFF/90 MCG INH INH SCH (07:47)
[2017-03-24] MEDS: NICOTINE 14 MG/24 HR TDSY TD SCH (07:48)
[2017-03-24] MEDS: LEVALBUTEROL 1.25MG/0.5ML NEB INH PRN ×3 (09:44→21:53)
[2017-03-24] MEDS ORDERED: POTASSIUM CHLORIDE 10 MEQ TABCR PO STA (12:51)
[2017-03-24] MEDS: LORAZEPAM 0.5 MG TAB PO PRN ×2 (13:38→18:22)
[2017-03-24] MEDS ORDERED: POTASSIUM CHLORIDE 20 MEQ TABCR PO STA (16:13)
--- NOTE | 2017-03-24 16:17 | Progress Note ---
Internal Med Progress Note Date of Service: Mar 24, 2017. Provider Documentation: SUBJECTIVE: The patient was seen and examined Feels a little better Wants to move around before being discharged Complains of tingling all over the body No Increase in SOB OBJECTIVE: Vital Signs-as noted below Exam: General-Minimal distress at rest Eyes-normal ENT-normal Neck-supple Lungs-decreased breath sound bilaterally Heart-Regular Abdomen-Benign,no masses,bowel sound Extremities-NO edema Neuro-AAOx3 Lab data as noted below. ASSESSMENT & PLAN: This is a 61 year old male with a PMH of severe COPD and chronic respiratory failure and ongoing tobacco use presents with worsening shortness of breath. Hypokalemia Replaced Monitor K and Mg Acute on chronic hypoxemic respiratory failure Due to COPD exacerbation. No evidence for pneumonia on CT scan He doesn't feel strong enough to leave yet. PT/OT have been ordered to assess him. CT chest for PE was negative in setting of recent long car-ride On BIPAP overnight with some improvement and this is not something that he uses at home Continue current Pulmonary Medications Clinically improved Active smoker Tobacco use-Nicotine patch in place. Encouraged to quit smoking. Nicotine patch in place. Situational Anxiety-Ativan PRN, new drug for him. DVT ppx subq heparin FULL CODE Likely to be discharged tomorrow Vital Signs: Date Time Temp Pulse Resp B/P (MAP) Pulse Ox O2 Delivery O2 Flow Rate FiO2 03/24/17 14:57 36.8 95 20 107/73 (84) 95 Nasal Cannula 2.5 03/24/17 14:37 101 20 98 BiPAP/CPAP 30 03/24/17 09:44 88 18 98 BiPAP/CPAP 30 03/24/17 08:00 95 Nasal Cannula 2.5 03/24/17 07:14 36.4 70 18 114/80 (91) 95 Nasal Cannula 2.5 03/24/17 00:00 Nasal Cannula Humidified Oxygen 03/23/17 23:45 36.3 82 18 108/67 (81) 92 Nasal Cannula 2.5 Humidified Oxygen 03/23/17 21:37 79 97 30 03/23/17 21:36 76 20 97 BiPAP/CPAP 30 Lab Results: Microbiology Results 03/24/17 Gram Stain - Final, Resulted 03/24/17 Sputum Culture, Resulted Pending
[2017-03-25] VITALS (12 sets, daily range): BP systolic 96–114; BP diastolic 63–81; PULSE 70–103; TEMP 36.2–36.6; O2SAT 93–99
[2017-03-25] MEDS: HEPARIN SOD 5000 UNIT/0.5 ML CARP SQ SCH ×3 (04:43→20:04)
[2017-03-25 05:41] LABS: HEMATOCRIT 45.7 % (42-52); MEAN CELL VOLUME 92.7 fL (80-100); MEAN CORPUSCULAR HEMOGLOBIN 31.6 pg (25-34); MEAN CORPUSCULAR HGB CONC 34.1 g/dl (32-36); MEAN PLATELET VOLUME 10.6 fL (7.4-10.4); PLATELET COUNT 233 K/uL (130-400); RED BLOOD COUNT 4.93 M/uL (4.7-6.1); WHITE BLOOD COUNT 12.55 K/uL (4.8-10.8)
[2017-03-25 06:13] LABS: CALCIUM 9.2 mg/dl (8.5-10.1); CREATININE 0.87 mg/dl (0.60-1.40); MAGNESIUM 2.3 mg/dl (1.8-2.4); PHOSPHORUS 2.1 mg/dl (2.5-4.9)
[2017-03-25] MEDS: AZITHROMYCIN 250 MG TAB PO SCH (08:45)
[2017-03-25] MEDS: NICOTINE 14 MG/24 HR TDSY TD SCH (08:46)
[2017-03-25] MEDS: ROFLUMILAST 500 MCG TAB PO SCH (08:46)
[2017-03-25] MEDS: BUDESONIDE/FORMOTEROL FUMARATE 160/4.5 60 PUFFS/INHALER INH SCH ×2 (08:47→20:09)
[2017-03-25] MEDS: TIOTROPIUM BROMIDE 5 PUFF/90 MCG INH INH SCH (08:47)
[2017-03-25] MEDS: LEVALBUTEROL 1.25MG/0.5ML NEB INH PRN ×3 (08:53→19:40)
--- NOTE | 2017-03-25 17:34 | Progress Note ---
Internal Med Progress Note Date of Service: Mar 25, 2017. Provider Documentation: SUBJECTIVE: The patient was seen and examined Feels a little better Wants to move around before being discharged Complains of tingling all over the body -resolved No Increase in SOB Generally weak and lethargic OBJECTIVE: Vital Signs-as noted below Exam: General-Minimal distress at rest Eyes-normal ENT-normal Neck-supple Lungs-decreased breath sound bilaterally Air entry is better today Heart-Regular Abdomen-Benign,no masses,bowel sound Extremities-NO edema Neuro-AAOx3 Lab data as noted below. ASSESSMENT & PLAN: This is a 61 year old male with a PMH of severe COPD and chronic respiratory failure and ongoing tobacco use presents with worsening shortness of breath. Hypokalemia Replaced Monitor K and Mg.Normalized Acute on chronic hypoxemic respiratory failure Due to COPD exacerbation. No evidence for pneumonia on CT scan He doesn't feel strong enough to leave yet. PT/OT have been ordered to assess him. CT chest for PE was negative in setting of recent long car-ride On BIPAP overnight with some improvement and this is not something that he uses at home Continue current Pulmonary Medications Clinically improved but not yet ready to be discharged Active smoker Tobacco use-Nicotine patch in place. Encouraged to quit smoking. Nicotine patch in place. Advised not to smoke any more Situational Anxiety-Ativan PRN, new drug for him. No Ativan during the night DVT ppx subq heparin FULL CODE Likely to be discharged soon Vital Signs: Date Time Temp Pulse Resp B/P (MAP) Pulse Ox O2 Delivery O2 Flow Rate FiO2 03/25/17 16:48 Nasal Cannula 2.5 03/25/17 16:07 100 16 96 Nasal Cannula 2.5 03/25/17 14:46 36.6 70 20 104/71 (82) 96 Nasal Cannula 2.5 03/25/17 11:44 96 Nasal Cannula 2.5 03/25/17 11:34 36.5 82 16 104/72 (83) 96 Nasal Cannula 2.5 03/25/17 08:58 103 99 30 03/25/17 08:53 100 18 99 BiPAP/CPAP 30 03/25/17 08:45 Nasal Cannula 2.5 03/25/17 07:34 2.5 03/25/17 07:27 36.4 80 16 96/63 (74) 95 Nasal Cannula 03/25/17 02:00 95 Nasal Cannula 2.5 03/25/17 00:00 36.3 81 96/66 (76) 93 Nasal Cannula 2.5 03/24/17 21:53 88 98 30 03/24/17 21:52 96 18 98 BiPAP/CPAP 30 Lab Results: Results Past 24 Hours Test 03/25/17 05:28 Range/Units White Blood Count 12.55 4.8-10.8 K/uL Red Blood Count 4.93 4.7-6.1 M/uL Hemoglobin 15.6 14.0-18.0 g/dL Hematocrit 45.7 42-52 % Mean Corpuscular Volume 92.7 80-100 fL Mean Corpuscular Hemoglobin 31.6 25-34 pg Mean Corpuscular Hemoglobin Concent 34.1 32-36 g/dl RDW Standard Deviation 44.3 36.4-46.3 fL RDW Coefficient of Variation 13.1 11.5-14.5 % Platelet Count 233 130-400 K/uL Mean Platelet Volume 10.6 7.4-10.4 fL Sodium Level 139 136-145 mmol/L Potassium Level 4.0 3.5-5.1 mmol/L Chloride Level 107 98-107 mmol/L Carbon Dioxide Level 28 21-32 mmol/L Anion Gap 4.0 3-11 mmol/L Blood Urea Nitrogen 15 7-18 mg/dl Creatinine 0.87 0.60-1.40 mg/dl Est Creatinine Clear Calc Drug Dose 67.1 ml/min Estimated GFR () 109.5 Estimated GFR (Non- 94.5 BUN/Creatinine Ratio 17.0 10-20 Random Glucose 87 70-99 mg/dl Calcium Level 9.2 8.5-10.1 mg/dl Phosphorus Level 2.1 2.5-4.9 mg/dl Magnesium Level 2.3 1.8-2.4 mg/dl
[2017-03-25] MEDS ORDERED: POT PHOSPHATE MONOBASIC W/ SOD TAB PO ONE (17:45)
[2017-03-26] VITALS (11 sets, daily range): BP systolic 110–123; BP diastolic 72–83; PULSE 72–92; TEMP 36.2–36.6; O2SAT 94–97
[2017-03-26] MEDS: HEPARIN SOD 5000 UNIT/0.5 ML CARP SQ SCH ×3 (05:15→20:55)
[2017-03-26] MEDS: LEVALBUTEROL 1.25MG/0.5ML NEB INH PRN ×5 (07:05→23:19)
[2017-03-26] MEDS: AZITHROMYCIN 250 MG TAB PO SCH (07:56)
[2017-03-26] MEDS: BUDESONIDE/FORMOTEROL FUMARATE 160/4.5 60 PUFFS/INHALER INH SCH ×2 (07:56→20:13)
[2017-03-26] MEDS: ROFLUMILAST 500 MCG TAB PO SCH (07:57)
[2017-03-26] MEDS: NICOTINE 14 MG/24 HR TDSY TD SCH (07:58)
[2017-03-26] MEDS: TIOTROPIUM BROMIDE 5 PUFF/90 MCG INH INH SCH (08:26)
[2017-03-26] MEDS ORDERED: NURSING VERBAL MED ORDER ONE (11:45)
[2017-03-26] MEDS ORDERED: SODIUM CHLORIDE 0.65% NA SOLN 45 ML (OCEAN) PRN (12:00)
--- NOTE | 2017-03-26 18:52 | Progress Note ---
Internal Med Progress Note Date of Service: Mar 26, 2017. Provider Documentation: SUBJECTIVE: The patient was seen and examined Feels a little better Wants to move around before being discharged Not yet ready to be discharged Complains of bilateral nasal blockage OBJECTIVE: Vital Signs-as noted below Exam: General-Minimal distress at rest Eyes-normal ENT-normal Neck-supple Lungs-decreased breath sound bilaterally Air entry is better today Heart-Regular Abdomen-Benign,no masses,bowel sound Extremities-NO edema Neuro-AAOx3 Lab data as noted below. ASSESSMENT & PLAN: This is a 61 year old male with a PMH of severe COPD and chronic respiratory failure and ongoing tobacco use presents with worsening shortness of breath. Hypokalemia Replaced Monitor K and Mg.--Normalized NO more tingling of the extremities Acute on chronic hypoxemic respiratory failure Due to COPD exacerbation. No evidence for pneumonia on CT scan He doesn't feel strong enough to leave yet. PT/OT have been ordered to assess him. CT chest for PE was negative in setting of recent long car-ride On BIPAP overnight with some improvement and this is not something that he uses at home Continue current Pulmonary Medications Clinically improved but not yet ready to be discharged Remains SOB Active smoker Tobacco use-Nicotine patch in place. Encouraged to quit smoking. Nicotine patch in place. Advised not to smoke any more Could not tolerate Nicotine patch Situational Anxiety-Ativan PRN, new drug for him. No Ativan during the night DVT ppx subq heparin FULL CODE Likely to be discharged tomorrow Vital Signs: Date Time Temp Pulse Resp B/P (MAP) Pulse Ox O2 Delivery O2 Flow Rate FiO2 03/26/17 15:16 87 16 97 Nasal Cannula 2.5 03/26/17 14:36 36.4 86 20 110/72 (85) 94 Nasal Cannula 2.5 03/26/17 11:47 92 16 95 Nasal Cannula 2.5 03/26/17 07:22 36.6 72 22 113/72 (86) 97 Nasal Cannula 2.5 03/26/17 07:10 92 16 95 Nasal Cannula 2.5 03/26/17 00:50 Nasal Cannula 2.0 03/25/17 23:04 36.2 79 20 114/81 (92) 97 BiPAP 03/25/17 22:46 102 94 30 03/25/17 20:05 Nasal Cannula 2.0 03/25/17 19:40 92 16 95 Nasal Cannula 2.5
[2017-03-27 04:25] VITALS: PULSE 73; O2SAT 95
[2017-03-27] MEDS: LEVALBUTEROL 1.25MG/3ML NEB INH PRN ×3 (04:25→11:09)
[2017-03-27] MEDS: HEPARIN SOD 5000 UNIT/0.5 ML CARP SQ SCH (05:30)
[2017-03-27 06:19] LABS: HEMATOCRIT 43.3 % (42-52); MEAN CELL VOLUME 93.3 fL (80-100); MEAN CORPUSCULAR HEMOGLOBIN 31.9 pg (25-34); MEAN CORPUSCULAR HGB CONC 34.2 g/dl (32-36); MEAN PLATELET VOLUME 10.8 fL (7.4-10.4); PLATELET COUNT 249 K/uL (130-400); RED BLOOD COUNT 4.64 M/uL (4.7-6.1); WHITE BLOOD COUNT 13.75 K/uL (4.8-10.8)
[2017-03-27 06:58] LABS: BUN/CREATININE RATIO 18.8 (10-20); CALCIUM 8.6 mg/dl (8.5-10.1); CREATININE 0.82 mg/dl (0.60-1.40); MAGNESIUM 2.3 mg/dl (1.8-2.4); POTASSIUM 3.4 mmol/L (3.5-5.1)
[2017-03-27 06:59] VITALS: PULSE 89; O2SAT 93
[2017-03-27 07:33] VITALS: BP 94/63; PULSE 73; TEMP 36.4; O2SAT 93
[2017-03-27 08:00] VITALS: O2SAT 93
[2017-03-27] MEDS: NICOTINE 14 MG/24 HR TDSY TD SCH (08:00)
[2017-03-27] MEDS ORDERED: POTASSIUM CHLORIDE 20 MEQ TABCR PO ONE ×2 (08:00→10:00)
[2017-03-27] MEDS ORDERED: POTASSIUM PHOS 3 MMOL/1 ML INFUSION IV ONE (08:00)
[2017-03-27] MEDS ORDERED: POTASSIUM PHOSPHATE INJ 21 MMOL in SODIUM CHLORIDE 0.9% 500ML 500 ML IV ONE (08:15)
[2017-03-27] MEDS: TIOTROPIUM BROMIDE 5 PUFF/90 MCG INH INH SCH (08:36)
[2017-03-27] MEDS: BUDESONIDE/FORMOTEROL FUMARATE 160/4.5 60 PUFFS/INHALER INH SCH (08:37)
[2017-03-27] MEDS: ROFLUMILAST 500 MCG TAB PO SCH (08:38)
[2017-03-27] MEDS: AZITHROMYCIN 250 MG TAB PO SCH (08:38)
--- NOTE | 2017-03-27 09:57 | Progress Note ---
Internal Med Progress Note Date of Service: Mar 27, 2017. Provider Documentation: SUBJECTIVE: The patient was seen and examined Feels a lot better today Mentally and Physically ready to get out of the hospital Minimal SOB at rest OBJECTIVE: Vital Signs-as noted below Exam: General-Minimal distress at rest Eyes-normal ENT-normal Neck-supple Lungs-decreased breath sound bilaterally No wheezing and or crackles Heart-Regular Abdomen-Benign,no masses,bowel sound Extremities-NO edema Neuro-AAOx3 Lab data as noted below. ASSESSMENT & PLAN: This is a 61 year old male with a PMH of severe COPD and chronic respiratory failure and ongoing tobacco use presents with worsening shortness of breath. Hypokalemia Replaced Monitor K and Mg.--Normalized NO more tingling of the extremities Electrolytes are OK Oral Phosphorus given for minimally low Phosphorus Acute on chronic hypoxemic respiratory failure Due to COPD exacerbation. No evidence for pneumonia on CT scan He doesn't feel strong enough to leave yet. PT/OT have been ordered to assess him. CT chest for PE was negative in setting of recent long car-ride On BIPAP overnight with some improvement and this is not something that he uses at home Continue current Pulmonary Medications Clinically improved but not yet ready to be discharged Remains SOB but acceptable Advised to take precaution to avoid any stimulant which can cause an exacerbation He is aware of the stimulants and I had a long discussion about that with him Active smoker Tobacco use-Nicotine patch in place. Encouraged to quit smoking. Nicotine patch in place. Advised not to smoke any more Could not tolerate Nicotine patch Again advised very strongly to avoid smoke/smoking Situational Anxiety-Ativan PRN, new drug for him. No Ativan during the night DVT ppx subq heparin FULL CODE Discharge today Vital Signs: Date Time Temp Pulse Resp B/P (MAP) Pulse Ox O2 Delivery O2 Flow Rate FiO2 03/27/17 07:33 36.4 73 18 94/63 (73) 93 2.0 03/27/17 06:59 89 18 93 Nasal Cannula 2.5 03/27/17 04:25 73 18 95 Nasal Cannula 2.5 03/27/17 00:05 Nasal Cannula 2.0 03/26/17 23:21 86 96 30 03/26/17 23:20 86 20 96 BiPAP/CPAP 30 03/26/17 22:56 36.2 77 18 123/83 (96) 97 BiPAP 03/26/17 19:55 Nasal Cannula 2.0 03/26/17 19:22 87 18 95 Nasal Cannula 2.5 03/26/17 16:00 97 Nasal Cannula 2.0 03/26/17 15:16 87 16 97 Nasal Cannula 2.5 03/26/17 14:36 36.4 86 20 110/72 (85) 94 Nasal Cannula 2.5 03/26/17 11:47 92 16 95 Nasal Cannula 2.5 Lab Results: Results Past 24 Hours Test 03/27/17 05:27 Range/Units White Blood Count 13.75 4.8-10.8 K/uL Red Blood Count 4.64 4.7-6.1 M/uL Hemoglobin 14.8 14.0-18.0 g/dL Hematocrit 43.3 42-52 % Mean Corpuscular Volume 93.3 80-100 fL Mean Corpuscular Hemoglobin 31.9 25-34 pg Mean Corpuscular Hemoglobin Concent 34.2 32-36 g/dl RDW Standard Deviation 45.3 36.4-46.3 fL RDW Coefficient of Variation 13.3 11.5-14.5 % Platelet Count 249 130-400 K/uL Mean Platelet Volume 10.8 7.4-10.4 fL Sodium Level 142 136-145 mmol/L Potassium Level 3.4 3.5-5.1 mmol/L Chloride Level 107 98-107 mmol/L Carbon Dioxide Level 27 21-32 mmol/L Anion Gap 8.0 3-11 mmol/L Blood Urea Nitrogen 15 7-18 mg/dl Creatinine 0.82 0.60-1.40 mg/dl Est Creatinine Clear Calc Drug Dose 71.2 ml/min Estimated GFR () 112.2 Estimated GFR (Non- 96.8 BUN/Creatinine Ratio 18.8 10-20 Random Glucose 81 70-99 mg/dl Calcium Level 8.6 8.5-10.1 mg/dl Magnesium Level 2.3 1.8-2.4 mg/dl
[2017-03-27] MEDS ORDERED: POT PHOSPHATE MONOBASIC W/ SOD TAB PO ONE (10:00)
[2017-03-27] MEDS ORDERED: DLR500 PO (10:49)
[2017-03-27] MEDS ORDERED: SPRIN INH (10:49)
[2017-03-27] MEDS ORDERED: PRD20 PO (10:49)
--- NOTE | 2017-03-27 10:53 | Discharge Instructions ---
Discharge Instructions Date of Service Mar 27, 2017. Admission Reason for Admission: Copd Exacerbation, Pna Discharge Discharge Diagnosis / Problem: COPD exacerbation,Acute on Chronic Respiratory failure Discharge Goals Goal(s): Prevent Disease Progression Activity Recommendations Activity Limitations: resume your previous activity . Instructions / Follow-Up Instructions / Follow-Up Please make an appointment with your PCP in 1 week and see your Bus Driver Supervisor in 1-2 weeks . Current Hospital Diet Patient's current hospital diet: Regular Diet Discharge Diet Recommended Diet: Regular Diet Pending Studies Studies pending at discharge: no Medical Emergencies . Who to Call and When: Medical Emergencies: If at any time you feel your situation is an emergency, please call 911 immediately. . Non-Emergent Contact Non-Emergency issues call your: Primary Care Provider . Past History Medical & Surgical History: (1) Respiratory distress (2) COPD exacerbation (3) Emphysema of lung . "Provider Documentation" section prepared by Edmund Trevino. . VTE Core Measure Inpt VTE Proph given/why not?: Unfractionated heparin SQ
[2017-03-27 11:05] VITALS: BP 94/63; PULSE 73; TEMP 36.4; O2SAT 93
[2017-03-27 11:09] VITALS: PULSE 95; O2SAT 96
--- NOTE | 2017-03-27 11:29 | Discharge Summary ---
Discharge Summary Date of Service Mar 27, 2017. Discharge Summary Admission Date: Mar 19, 2017 at 18:24 Discharge Date: Mar 27, 2017 Discharge Disposition: Home Principal Diagnosis: COPD exacerbation,Acute on Chronic Respiratory failure Secondary Diagnoses/Problems: Please see H&P and Hospital progress note Consultations: Kris Medication Reconciliation New Medications: Prednisone (Prednisone) 20 Mg Tab 20 MG PO UD for 28 Days, #35 TAB 2 po daily for 7 days,1 and a 1/2 po daily for 7 days,1 po daily for 7 days ,1/2 po daily for 7 days. Roflumilast (Daliresp) 500 Mcg Tab 500 MCG PO DAILY for 30 Days, #30 TAB Tiotropium [place] (Spiriva Handihaler) 5 Puff/90 Mcg Aerp 1 PUFF INH QAM for 30 Days, #1 Continued Medications: Albuterol Sulfate (Albuterol Sulfate) 1.25 Mg/3 Ml Neb 1 VIAL NEB TID, ML Albuterol Sulfate (Proair Respiclick) 108 Mcg/Act Aer 2 PUFFS INH UD PRN for Rescue Budesonide/Formoterol Fumarate (Symbicort 80/4.5 Inhaler) Aero 2 PUFFS INH BID, INHALER RINSE MOUTH AFTER USE Home O2 Therapy (Oxygen) Gas 2-3 LITERS NA CONTINOUS, BTL Tiotropium [place] (Spiriva Respimat) 2.5 Mcg/Act Spr 1 PUFF INH DAILY, INHALER Admission Information HPI (per Admitting provider): This is a 61 year old male with a PMH of severe COPD and chronic respiratory failure and ongoing tobacco use presents with worsening shortness of breath. He is a resident of [place] and came to [place] to get away from [place]. He came over and stated that he was driving and felt really short of breath. Denied any chest pain. States he used nebulizer treatments x2 prior to arrival; he also received a third neb treatment en route. Upon presentation, had imagining done with suggested a pneumonia. Was given antibiotics, solu- medrol, neb treatments and was put on bipap. During my examination, he was more comfortable than when he first came in. Past Medical/Surgical History Medical Problems: (1) Emphysema of lung Status: Chronic Family History Patient reports no known family medical history. Social History Smoking Status: Current Every Day Smoker Marital Status: Multi-Drug Resistant Organisms History of MDRO: No Allergies Coded Allergies: No Known Allergies (Unverified , 03/19/17) Home Medications Scheduled Albuterol Sulfate (Albuterol Sulfate), 1 VIAL NEB TID Budesonide/Formoterol Fumarate (Symbicort 80/4.5 Inhaler), 2 PUFFS INH BID Home O2 Therapy (Oxygen), 2-3 LITERS NA CONTINOUS Tiotropium [place] (Spiriva Respimat), 1 PUFF INH DAILY Scheduled PRN Albuterol Sulfate (Proair Respiclick), 2 PUFFS INH UD PRN for Rescue Review of Systems Constitutional: No fever, No chills, No sweats, No weakness, No fatigue Respiratory: + shortness of breath, + dyspnea on exertion, + dyspnea at rest, No cough, No sputum, No wheezing, No hemoptysis Cardiovascular: No chest pain, No orthopnea, No edema, No palpitations Abdomen: No pain, No nausea, No vomiting, No diarrhea, No constipation, No GI bleeding Genitourinary - Male: No hematuria, No dysuria Neurologic: No numbness/tingling Psychiatric: No depression symptoms, No anxiety, No insomnia Endocrine: No fatigue Hematologic / Lymphatic: No abnormal bleeding/bruising Integumentary: No rash Allergic / Immunologic: No environmental allergies, No seasonal allergies Physical Ex - H&P Physical Exam Vital Signs Date Time Temp Pulse Resp B/P (MAP) Pulse Ox O2 Delivery O2 Flow Rate FiO2 03/19/17 17:41 100 20 98 BiPAP 60 03/19/17 17:02 107 22 126/86 100 BiPAP 60 03/19/17 16:48 105 16 99 BiPAP/CPAP 60 03/19/17 16:45 105 99 60 03/19/17 15:40 100 BiPAP 100 03/19/17 15:40 99 BiPAP 100 03/19/17 15:38 103 26 99 BiPAP 100 03/19/17 15:02 119 03/19/17 14:59 97 Oxymask 6.0 03/19/17 14:59 36.6 110 28 127/97 98 Oxymask 6.0 98 General Appearance: + mild distress (respiratory distress), + thin Respiratory/Chest: + respiratory distress, + decreased breath sounds, + pertinent finding (no wheezing appreciated, decreased breath sounds) Cardiovascular: no edema, no murmur, + tachycardia Abdomen/GI: normal bowel sounds, non tender, soft Extremities/Musculoskelatal: no calf tenderness, normal capillary refill, no pedal edema Neurologic/Psych: first assist II-XII nml as tested, no motor/sensory deficits, alert, normal mood/affect, oriented x 3 Skin: normal color Lymphatic: no adenopathy Diagnostics - H&P Diagnostics Laboratory Results Results Past 24 Hours Test 03/19/17 15:55 03/19/17 17:11 03/19/17 17:14 Range/Units White Blood Count 12.77 4.8-10.8 K/uL Red Blood Count 5.17 4.7-6.1 M/uL Hemoglobin 17.5 14.0-18.0 g/dL Hematocrit 48.8 42-52 % Mean Corpuscular Volume 94.4 80-100 fL Mean Corpuscular Hemoglobin 33.8 25-34 pg Mean Corpuscular Hemoglobin Concent 35.9 32-36 g/dl Platelet Count 213 130-400 K/uL Mean Platelet Volume 11.0 7.4-10.4 fL Neutrophils (%) (Auto) 82.0 % Lymphocytes (%) (Auto) 10.3 % Monocytes (%) (Auto) 7.1 % Eosinophils (%) (Auto) 0.1 % Basophils (%) (Auto) 0.2 % Neutrophils # (Auto) 10.46 1.4-6.5 K/uL Lymphocytes # (Auto) 1.32 1.2-3.4 K/uL Monocytes # (Auto) 0.91 0.11-0.59 K/uL Eosinophils # (Auto) 0.01 0-0.5 K/uL Basophils # (Auto) 0.03 0-0.2 K/uL RDW Standard Deviation 46.5 36.4-46.3 fL RDW Coefficient of Variation 13.4 11.5-14.5 % Immature Granulocyte % (Auto) 0.3 % Immature Granulocyte # (Auto) 0.04 0.00-0.02 K/uL Prothrombin Time 10.7 9.0-12.0 SECONDS Prothromb Time International Ratio 1.0 0.9-1.1 Activated Partial Thromboplast Time 28.2 21.0-31.0 SECONDS Partial Thromboplastin Ratio 1.1 Sodium Level 138 136-145 mmol/L Potassium Level 3.5-5.1 mmol/L Chloride Level 102 98-107 mmol/L Carbon Dioxide Level 26 21-32 mmol/L Anion Gap 10.0 3-11 mmol/L Blood Urea Nitrogen 12 7-18 mg/dl Creatinine 0.98 0.60-1.40 mg/dl Est Creatinine Clear Calc Drug Dose 59.6 ml/min Estimated GFR () 97.4 Estimated GFR (Non- 84.1 BUN/Creatinine Ratio 12.7 10-20 Random Glucose 105 70-99 mg/dl Calcium Level 9.8 8.5-10.1 mg/dl Total Bilirubin 0.8 0.2-1 mg/dl Aspartate Amino Transf (AST/SGOT) 15-37 U/L Alanine Aminotransferase (ALT/SGPT) 15 12-78 U/L Alkaline Phosphatase 71 45-117 U/L Troponin I < 0.015 0-0.045 ng/ml Total Protein 8.2 6.4-8.2 gm/dl Albumin 4.1 3.4-5.0 gm/dl Globulin 4.1 2.5-4.0 gm/dl Albumin/Globulin Ratio 1.0 0.9-2 Lactic Acid Level 2.7 0.4-2.0 mmol/L Microbiology Results 03/19/17 Blood Culture, Received Pending 03/19/17 Blood Culture, Received Pending Diagnostic Radiology CHEST ONE VIEW PORTABLE CLINICAL HISTORY: Respiratory distress. Dyspnea. COMPARISON STUDY: No previous studies for comparison. FINDINGS: Severe emphysema is noted. The patient is rotated. Asymmetric left lung airspace opacity is noted, most evident within the left lung base. Several nodular densities projecting over the left upper lung could reflect summation artifact with ribs. Cardiac size is normal. There is no evidence for pulmonary edema. IMPRESSION: 1. Mild asymmetric left lung airspace opacity which favors an infectious process. Radiographic follow up to ensure resolution is recommended. 2. A few nodular densities projecting over the left upper lung. This could reflect summation artifact, airspace disease or less likely pulmonary nodules. This should be assessed on subsequent studies. 3. Severe emphysema. EKG Sinus tachycardia Right atrial enlargement Right axis deviation Low voltage QRS Cannot rule out Anteroseptal infarct , age undetermined Impression - H&P Impression Assessment and Plan This is a 61 year old male with a PMH of severe COPD and chronic respiratory failure and ongoing tobacco use presents with worsening shortness of breath. Acute COPD Exacerbation Acute on Chronic Respiratory Failure patient has severe emphysema and chronically on 2L of O2 currently on bipap, which we will continue for now can wean back to nasal cannula if he tolerates it and if O2 sats stay around 92 % or higher Xopenox nebulizers added Solu-medrol 40mg q8 added Daliresp Magnesium 1gram Spiriva and Symbicort pulmonary consultation for further input Community Acquired Pneumonia certainly making the COPD worse will start Rocephin + Azithromycin WBC elevated, cultures pending repeat CXR in 1-2 days Lactic Acidosis this is more likely related to his hypoxia, does not seem dehydrated, will likely improve with improved oxygenation DVT ppx subq heparin FULL CODE VTE Prophylaxis VTE Risk Assessment Done? Y/N: Yes Risk Level: Moderate Physical Exam (per Admitting): General Appearance: + mild distress (respiratory distress), + thin Respiratory/Chest: + respiratory distress, + decreased breath sounds, + pertinent finding (no wheezing appreciated, decreased breath sounds) Cardiovascular: no edema, no murmur, + tachycardia Abdomen/GI: normal bowel sounds, non tender, soft Extremities/Musculoskelatal: no calf tenderness, normal capillary refill, no pedal edema Neurologic/Psych: first assist II-XII nml as tested, no motor/sensory deficits, alert , normal mood/affect, oriented x 3 Skin: normal color Lymphatic: no adenopathy Hospital Course This is a 61 year old male with a PMH of severe COPD and chronic respiratory failure and ongoing tobacco use presents with worsening shortness of breath. Hypokalemia Replaced Monitor K and Mg.--Normalized NO more tingling of the extremities Electrolytes are OK Oral Phosphorus given for minimally low Phosphorus Acute on chronic hypoxemic respiratory failure Due to COPD exacerbation. No evidence for pneumonia on CT scan He doesn't feel strong enough to leave yet. PT/OT have been ordered to assess him. CT chest for PE was negative in setting of recent long car-ride On BIPAP overnight with some improvement and this is not something that he uses at home Continue current Pulmonary Medications Clinically improved but not yet ready to be discharged Remains SOB but acceptable Advised to take precaution to avoid any stimulant which can cause an exacerbation He is aware of the stimulants and I had a long discussion about that with him Active smoker Tobacco use-Nicotine patch in place. Encouraged to quit smoking. Nicotine patch in place. Advised not to smoke any more Could not tolerate Nicotine patch Again advised very strongly to avoid smoke/smoking Situational Anxiety-Ativan PRN, new drug for him. No Ativan during the night DVT ppx subq heparin FULL CODE Discharge today Total time spent on discharge = 35 minutes This includes examination of the patient, discharge planning, medication reconciliation, and communication with other providers. Discharge Instructions Date of Service Mar 27, 2017. Admission Reason for Admission: Copd Exacerbation, Pna Discharge Discharge Diagnosis / Problem: COPD exacerbation,Acute on Chronic Respiratory failure Discharge Goals Goal(s): Prevent Disease Progression Activity Recommendations Activity Limitations: resume your previous activity . Instructions / Follow-Up Instructions / Follow-Up Please make an appointment with your PCP in 1 week and see your Wire Products Inspector in 1-2 weeks . Current Hospital Diet Patient's current hospital diet: Regular Diet Discharge Diet Recommended Diet: Regular Diet Pending Studies Studies pending at discharge: no Medical Emergencies . Who to Call and When: Medical Emergencies: If at any time you feel your situation is an emergency, please call 911 immediately. . Non-Emergent Contact Non-Emergency issues call your: Primary Care Provider . Past History Medical & Surgical History: (1) Respiratory distress (2) COPD exacerbation (3) Emphysema of lung . "Provider Documentation" section prepared by Edmund Trevino. . VTE Core Measure Inpt VTE Proph given/why not?: Unfractionated heparin SQ <Electronically signed by Edmund Trevino M.D.> Signed: 03/27/17 1053 Signed: The status of this report is Signed * If report status is Draft, the document has not been finalized by the responsible provider.
== END 2017-03-27 13:15 | disposition home or self-care (01) | DRG 189 ==
LOC: EDBD 14:48 → C.EDB 14:49 → C.4E 18:24 → ENRESERV 19:00
PROVIDERS: ADMIT Family Medicine; ATTEND Internal Medicine
DX: J96.21 Acute and chronic respiratory failure with hypoxia (principal); J18.9 Pneumonia, unspecified organism; J44.1 Chronic obstructive pulmonary disease with (acute) exacerbation; E87.2 Acidosis; F17.200 Nicotine dependence, unspecified, uncomplicated; E78.00 Pure hypercholesterolemia, unspecified; Z99.81 Dependence on supplemental oxygen